=== PATIENT | female | born 1990 | race Caucasian/White ===

== ENCOUNTER 2018-02-03 18:51 | Outpatient (CLI) | payer OTHER, MEDICAID ==
[2018-02-03 20:43] LABS: ADD UMIC YES; UR ASCORBIC ACID NEGATIVE (NEGATIVE); UR BACTERIA FEW /HPF (NONE SEEN); UR BILIRUBIN (Dip) NEGATIVE (NEGATIVE); UR BLOOD (Dip) 1+ mg/dL (NEGATIVE); UR CLARITY CLEAR (CLEAR); UR COLOR YELLOW (YELLOW); UR GLUCOSE (Dip) NEGATIVE (NEGATIVE); UR KETONES (Dip) NEGATIVE (NEGATIVE); UR LEUKOCYTE ESTERASE (Dip) 2+ Leu/ul (NEGATIVE); UR NITRITE (Dip) NEGATIVE (NEGATIVE); UR RBC 2 /HPF (0-5); UR SPECIFIC GRAVITY (Dip) 1.011 (1.003-1.030); UR SQUAMOUS EPITHELIAL CELL FEW /HPF (FEW); UR TOTAL PROTEIN (Dip) NEGATIVE (NEGATIVE); UR UROBILINOGEN (Dip) NEGATIVE (NEGATIVE); UR WBC 16 /HPF (0-5)
== END 2018-02-03 21:04 | disposition home or self-care (01) ==
LOC: OBT 18:51 → L-D 18:51 → OBT 21:04
DX: O26.893 Other specified pregnancy related conditions, third trimester (principal); Z3A.36 36 weeks gestation of pregnancy
CPT/HCPCS: 81001

== ENCOUNTER 2018-03-02 13:27 | Inpatient (IN) | payer OTHER ==
[2018-03-02] MEDS: MISOPROSTOL 50 MCG CAPSULE PO ×2 (01:00→20:37)
[2018-03-02] MEDS ORDERED: OXYTOCIN 30 UNITS/LR 500 ML IV ×2 (16:00)
[2018-03-02] MEDS ORDERED: CARBOPROST 250 MCG INJ IM (16:00)
[2018-03-02] MEDS ORDERED: BUTORPHANOL 2 MG INJ IV (16:00)
[2018-03-02] MEDS ORDERED: MISOPROSTOL 200 MCG TAB PR (16:00)
[2018-03-02] MEDS ORDERED: IBUPROFEN 600 MG TAB PO (16:00)
[2018-03-02] MEDS ORDERED: BUTORPHANOL 1 MG INJ IV (16:00)
[2018-03-02] MEDS ORDERED: LIDOCAINE 1% (MPF) 30 ML INJ INJ (16:00)
[2018-03-02 16:32] LABS: ADD MAN DIFF? NO
[2018-03-02 16:34] LABS: BASOPHILS % 0.1 % (0.0-2.0); EOSINOPHILS # 0.1 10^3/ul (0.0-0.5); EOSINOPHILS % 0.8 % (0.0-7.0); HEMATOCRIT 41.1 % (37.0-47.0); LYMPHOCYTES # 1.8 10^3/ul (0.8-2.9); MEAN CORPUSCULAR HEMOGLOBIN 27.8 pg (29.0-33.0); MEAN CORPUSCULAR HGB CONC 31.6 g/dl (32.0-37.0); MEAN CORPUSCULAR VOLUME 87.8 fl (82.0-101.0); MEAN PLATELET VOLUME 10.1 fl (7.4-10.4); MONOCYTE # 0.5 10^3/ul (0.3-0.9); MONOCYTES % 7.1 % (0.0-11.0); NEUTROPHIL # 5.2 10^3/ul (1.6-7.5); NEUTROPHILS % 68.5 % (39.0-77.0); PLATELET COUNT 200 10^3/UL (140-415); RED BLOOD COUNT 4.68 10^6/ul (4.20-5.40); RED CELL DISTRIBUTION WIDTH 12.8 % (11.5-14.5)
[2018-03-02 16:34] LABS: WHITE BLOOD COUNT 7.7 10^3/ul (4.8-10.8)
[2018-03-02 17:00] LABS: INR 0.89; PARTIAL THROMBOPLASTIN TIME 29.2 Sec (23.0-35.0); PROTIME 12.2 Sec (11.9-14.9)
[2018-03-02 17:20] LABS: HEPATITIS B SURFACE ANTIGEN NEGATIVE (NEGATIVE)
[2018-03-02] MEDS: LACTATED RINGER'S 1,000 ML IV (17:33)
[2018-03-02] MEDS ORDERED: MISOPROSTOL 50 MCG CAPSULE VAG (18:30)
[2018-03-02] MEDS: AMPICILLIN 2 GM/NS (PMX) 100 ML IV (20:37)
[2018-03-02 22:15] LABS: HEPATITIS B SURFACE ANTIGEN NEGATIVE (NEGATIVE)
[2018-03-02 22:25] LABS: HIV 1&2 ANTIBODY NEGATIVE (NEGATIVE)
[2018-03-03] MEDS: LACTATED RINGER'S 1,000 ML IV* (00:29)
[2018-03-03] MEDS: LACTATED RINGER'S 1,000 ML IV ×5 (00:40→15:59)
[2018-03-03] MEDS: AMPICILLIN 1 GM/NS (PMX) 50 ML IV ×6 (00:40→15:59)
[2018-03-03] MEDS: MISOPROSTOL 50 MCG CAPSULE PO (05:00)
[2018-03-03] MEDS: OXYTOCIN 30 UNITS/LR 500 ML IV ×2 (07:00→20:23)
[2018-03-03] MEDS ORDERED: FENTAnyl 2MCG/ML-ROPIV 0.2% 100 ML (11:46)
[2018-03-03] MEDS ORDERED: NALOXONE (0.4 MG/ML) INJ IV (12:00)
[2018-03-03] MEDS: FENTAnyl 2MCG/ML-ROPIV 0.2% 100 ML BAG EPI (19:05)
[2018-03-03 19:25] LABS: RAPID PLASMA REAGIN NONREACTIVE (NR)
[2018-03-03] MEDS: METHYLERGONOVINE 0.2 MG INJ IM (20:01)
[2018-03-03] MEDS: MINERAL OIL LIGHT 10 ML VIAL TOP (20:14)
[2018-03-03 20:18] LABS: CBV Base Excess -4.9 mmol/L; CBV COHb 0.6 %; CBV Oxygen Sat 44.3 mmHG; CBV Total Hemglobin 16.6 g/dl; Cord Blood Venous pO2 23.2 mmHG (15.0-45.0); Fraction OxyHgb Cord Venous 43.5 %; MODE ROOM AIR; MetHgb Cord Venous 1.3 %; Sample Type CBV; Site CORD
[2018-03-03 20:24] LABS: AADO2 Cord Arterial 66.6 mmHg; Arterial Cord Blood pCO2 57.4 mmHG (25-50); CBA Base Excess -6.6 mmol/L; CBA COHb 0.4 %; CBA Oxygen Sat 22.8 mmHG; Cord Blood Arterial pO2 14.4 mmHG (15.0-45.0); Fraction OxyHgb Cord Arterial 22.3 %; MODE ROOM AIR; Sample Type CBA; Site CORD
[2018-03-03] MEDS ORDERED: DIPHENHYDRAMINE 50 MG INJ IV (20:30)
[2018-03-03] MEDS ORDERED: DIPHENHYDRAMINE 25 MG CAP PO (20:30)
[2018-03-03] MEDS ORDERED: CARBOPROST 250 MCG INJ IM (20:30)
[2018-03-03] MEDS ORDERED: SENNA/DOCUSATE NA (8.6MG/50MG) TAB PO (20:30)
[2018-03-03] MEDS ORDERED: ONDANSETRON 4 MG INJ IV (20:30)
[2018-03-03] MEDS ORDERED: MAGNESIUM HYDROXIDE 30ML CUP PO (20:30)
[2018-03-03] MEDS ORDERED: MISOPROSTOL 200 MCG TAB PR (20:30)
[2018-03-03] MEDS ORDERED: ONDANSETRON 4 MG TAB PO (20:30)
[2018-03-03] MEDS ORDERED: HYDROCODONE/APAP (5/325) TAB PO ×2 (20:30)
[2018-03-03] MEDS ORDERED: WITCH HAZEL/GLYCERIN PAD PR (20:30)
[2018-03-03] MEDS ORDERED: NA PHOSPHATE/BIPHOS 133 ML ENEMA PR (20:30)
[2018-03-03] MEDS ORDERED: DIBUCAINE 1% 30 GM OINT TOP (20:30)
[2018-03-03] MEDS ORDERED: OXYTOCIN 30 UNITS/LR 500 ML IV (20:30)
[2018-03-03] MEDS ORDERED: BENZOCAINE 20% 56 ML SPRAY TOP (20:30)
[2018-03-03] MEDS ORDERED: LANOLIN HPA 1 PKT TOP (20:30)
[2018-03-03] MEDS: SENNA/DOCUSATE NA (8.6MG/50MG) TAB PO (21:45)
[2018-03-04] MEDS: OXYTOCIN 30 UNITS/LR 500 ML IV (00:19)
[2018-03-04] MEDS: IBUPROFEN 600 MG TAB PO ×5 (00:20→23:35)
[2018-03-04] MEDS: LACTATED RINGER'S 1,000 ML IV* (04:30)
[2018-03-04 08:08] LABS: ADD MAN DIFF? NO
[2018-03-04 08:13] LABS: BASOPHILS % 0.2 % (0.0-2.0); EOSINOPHILS # 0.2 10^3/ul (0.0-0.5); EOSINOPHILS % 1.1 % (0.0-7.0); HEMATOCRIT 31.8 % (37.0-47.0); HEMOGLOBIN 10.1 g/dl (12.0-16.0); LYMPHOCYTES # 2.8 10^3/ul (0.8-2.9); MEAN CORPUSCULAR HEMOGLOBIN 27.9 pg (29.0-33.0); MEAN CORPUSCULAR HGB CONC 31.8 g/dl (32.0-37.0); MEAN CORPUSCULAR VOLUME 87.8 fl (82.0-101.0); MEAN PLATELET VOLUME 10.2 fl (7.4-10.4); MONOCYTE # 1.1 10^3/ul (0.3-0.9); MONOCYTES % 8.5 % (0.0-11.0); NEUTROPHIL # 9.2 10^3/ul (1.6-7.5); NEUTROPHILS % 68.8 % (39.0-77.0); PLATELET COUNT 147 10^3/UL (140-415); RED BLOOD COUNT 3.62 10^6/ul (4.20-5.40); RED CELL DISTRIBUTION WIDTH 12.8 % (11.5-14.5)
[2018-03-04 08:13] LABS: WHITE BLOOD COUNT 13.3 10^3/ul (4.8-10.8)
[2018-03-04] MEDS: SENNA/DOCUSATE NA (8.6MG/50MG) TAB PO ×2 (09:32→20:30)
[2018-03-04 12:36] LABS: RUBELLA ANTIBODY - IGM <20.00 AU/mL
[2018-03-05] MEDS: IBUPROFEN 600 MG TAB PO (05:41)
[2018-03-05] MEDS: DIPHTH/TET/ACEL PERTUSS (ADULT) 0.5 ML VIAL IM* (09:00)
[2018-03-05] MEDS: MEASLES,MUMPS,RUBELLA VACCINE INJ SC* (09:00)
[2018-03-05] MEDS: VARICELLA VACCINE LIVE/PF 1,350 UNIT/0.5 ML ML SC* (09:00)
[2018-03-05] MEDS: SENNA/DOCUSATE NA (8.6MG/50MG) TAB PO (09:51)
== END 2018-03-05 11:45 | disposition home or self-care (01) | DRG 807 ==
LOC: OBT 13:27 → PP1 03-03 21:47 → L-D 13:27 → OBT 15:30 → L-D 15:30
PROVIDERS: Specialist
PROC: 10E0XZZ Delivery of Products of Conception, External Approach (ICD-10-PCS; principal; 2018-03-03)
PROC: 0KQM0ZZ Repair Perineum Muscle, Open Approach (ICD-10-PCS; 2018-03-03)
DX: O70.1 Second degree perineal laceration during delivery (principal); Z37.0 Single live birth; Z3A.40 40 weeks gestation of pregnancy
CPT/HCPCS: 36415; 36600; 62319; 76815; 76818; 82803; 85025; 85610; 85730; 86592; 86703; 86762; 86850; 86900; 86901; 87340; 90716; 99464